=== PATIENT | female | born 1930 | race Caucasian/White ===

== ENCOUNTER 2017-08-03 09:28 | Outpatient (CLI) | payer MEDICARE, OTHER ==
--- NOTE | 2017-08-03 11:45 | Diagnostic Imaging Report ---
PATRICIA MIKE [facility] [id number] [facility] [address] [place], [place]. [address] Report Submission Date: Aug 03, 2017 11:43:51 AM BEEF SKINNER Patient Study Name: GEORGE GATES Date: Aug 03, 2017 10:14:03 AM BEEF SKINNER Modality Type: CT\SR Gender: F Description: CT CHEST W/ CONTRAST : 32 Institution: [facility] Physician: PATRICIA MIKE Examination: CT chest History: Chronic Cough Comparison exams: CT chest report dated 14 July 2016. Images unavailable for review. Technique: CT chest with contrast protocol Findings: Apical and dependent scarring and atelectasis. Few scattered right lower lung subcentimeter nodules. Otherwise, lung pleura, parenchyma, and pulmonary vascularity are without irregularity. No posterior pleural effusion. Anterior mediastinum and drake are without gross mass or pathologic adenopathy. Thoracic aorta demonstrates peripheral described disease and mural thickening. No aneurysm. Minimal tortuosity near the diaphragm. Cardiac silhouette not enlarged Lower neck structures, upper abdominal organs, and osseous structures are without gross abnormality. Small hiatal hernia. Impression: Parenchymal scarring and subcentimeter nodules. Direct correlation with previous imaging recommended when becomes available. No acute appearing consolidation or effusion. Hiatal hernia. Electronically signed on Aug 03, 2017 11:43:51 AM BEEF SKINNER by: Rj UREÑA
== END 2017-08-03 09:30 ==
LOC: RAD 09:28
PROVIDERS: ATTEND Family Medicine
DX: R05 Cough (principal)
CPT/HCPCS: 71260; Q9967